=== PATIENT | male | born 1990 | race Caucasian/White ===

== ENCOUNTER 2017-11-15 02:08 | Emergency (ER) | payer OTHER ==
[2017-11-15] MEDS: HYDROCODONE/APAP (5/325) TAB PO (03:24)
[2017-11-15] MEDS: CYCLOBENZAPRINE 10 MG TAB PO (03:24)
[2017-11-15] MEDS: KETOROLAC 60 MG INJ IM (03:25)
== END 2017-11-15 04:10 | disposition home or self-care (01) ==
LOC: FTE 02:08
DX: K40.90 Unilateral inguinal hernia, without obstruction or gangrene, not specified as recurrent (principal)
CPT/HCPCS: 29505; 96372; 99284-25